=== PATIENT | female | born 1980 | race Caucasian/White ===

== ENCOUNTER 2018-08-17 19:05 | Emergency (ER) | payer MEDICAID ==
[~2018-08-17] VITALS: Ht 162.6 cm; Wt 86.2 kg
[2018-08-17 19:25] VITALS: BP_SYST 145
[2018-08-17] MEDS ORDERED: KETOROLAC TROMETHAMINE 60 MG/2 ML VIAL IM ONE (19:45)
[2018-08-17 20:09] VITALS: BP_SYST 145
== END 2018-08-17 20:09 | disposition home or self-care (01) ==
LOC: SED 19:05
DX: G89.29 Other chronic pain (principal); R03.0 Elevated blood-pressure reading, without diagnosis of hypertension; F17.210 Nicotine dependence, cigarettes, uncomplicated; J45.909 Unspecified asthma, uncomplicated; Z90.49 Acquired absence of other specified parts of digestive tract
CPT/HCPCS: 99281

== ENCOUNTER 2019-02-17 14:52 | Emergency (ER) | payer MEDICAID ==
[~2019-02-17] VITALS: Ht 165.1 cm; Wt 90.7 kg
[2019-02-17 14:52] VITALS: BP_SYST 146
[2019-02-17] MEDS ORDERED: HYDROcodone/ACETAMIN 5-325 MG TAB (NORCO/ VICODIN) PO ONE (17:00)
[2019-02-17 17:20] VITALS: BP_SYST 135
== END 2019-02-17 17:20 | disposition home or self-care (01) ==
LOC: SED 14:52
DX: S46.911A Strain of unspecified muscle, fascia and tendon at shoulder and upper arm level, right arm, initial encounter (principal); S16.1XXA Strain of muscle, fascia and tendon at neck level, initial encounter; R03.0 Elevated blood-pressure reading, without diagnosis of hypertension; F17.210 Nicotine dependence, cigarettes, uncomplicated; J45.909 Unspecified asthma, uncomplicated; Z90.49 Acquired absence of other specified parts of digestive tract; Y04.0XXA Assault by unarmed brawl or fight, initial encounter; Y93.89 Activity, other specified; Y92.89 Other specified places as the place of occurrence of the external cause; Y99.8 Other external cause status
CPT/HCPCS: 72040-TC; 73090; 99283

== ENCOUNTER 2021-01-26 08:48 | Emergency (ER) | payer MEDICAID ==
[~2021-01-26] VITALS: Ht 160 cm; Wt 90.7 kg
[2021-01-26 09:02] VITALS: BP_SYST 137
--- NOTE | 2021-01-26 09:08 | NUR ---
Patient to ER bed 3 to gown for evaluation. Side rails up. Report given to Tiffanie Abraham
--- NOTE | 2021-01-26 09:14 | NUR ---
urine collected and sent to the lab.
--- NOTE | 2021-01-26 09:20 | NUR ---
Pt presents to er with complaints of left eye drainage and swelling x3days. Aler and oriented x4. Pt states she shared eye drops with a friend who had an eye infection. No pain or distress noted. VSS
[2021-01-26] MEDS ORDERED: NEO/5DRO3 OP (09:21)
--- NOTE | 2021-01-26 09:22 | NUR ---
ER at bedside examining patient.
[2021-01-26 09:27] VITALS: BP_SYST 137
--- NOTE | 2021-01-26 09:28 | NUR ---
Patient given written and verbal discharge instructions and verbalizes understanding. ER MD discussed with patient the results and treatment provided. Patient in stable condition. ID arm band removed. IV catheter removed intact and dressing applied, no active bleeding. Rx of Maxitrol given. Patient educated on pain management and to follow up with PMD. Pain Scale 0. Opportunity for questions provided and answered. Medication side effect fact sheet provided.
== END 2021-01-26 09:28 | disposition home or self-care (01) ==
LOC: SED 08:48
DX: H10.32 Unspecified acute conjunctivitis, left eye (principal); J45.909 Unspecified asthma, uncomplicated
CPT/HCPCS: 81025; 99283